=== PATIENT | male | born 1990 | race Caucasian/White ===

== ENCOUNTER 2018-09-03 13:42 | Emergency (ER) | payer SELFPAY ==
--- NOTE | 2018-09-03 13:46 | ED Physician Documentation ---
Sore Throat/Dental Pain - HISTORIAN Historian: patient - HPI Stated Complaint: dental pain Chief Complaint: Dental Pain Onset: days ago (5) Context: Other (dental extraction ) Worsened By: nothing Further Comments: yes (He states that he had a tooth pulled 5 days ago and he has been taking her vicodin regularly and ran out last night. He states his dentist told him to expect pain due to a difficult extraction. He has had no fever. He is able to eat and drink normally.) - ROS CONST: no problems - PAST HX Past History: none - SOCIAL HX Smoking History: non-smoker, other (Vape ) Alcohol Use: none Drug Use: none - FAMILY HX Family History: No - REVIEWED ASSESSMENTS Nursing Assessment Reviewed: Yes Vitals Reviewed: Yes Progress - Progress Progress: 1450: mom states he should not receive IM meds due to reactions to his muscle. He had already received the Toradol which mom states "I don't know why you would give him that he is in terrible pain and that wont help" She states he is in the room crying in pain and no one is helping DG 1455: pt mom and grandmother approach the desk stating he has been in the room for hours and he has had no one come in and eval or talk to him and his time with the provider was "only 2 seconds" which the provider did not explain anything and they would like to "go to a real hospital" Explained the rational for meds and waiting they state "can we have another provider who is not butt hurt over this" - we did ask if he wanted to wait or sign AMA form. He state he will not sign the form due to wanting the prescriptions for pain. Mom states "why cant we just have the prescription and go home". Explained the reason for waiting and he keeps saying "I have been here an hour and no one is helping me" DG 1502: he was back in room crying and thrashing around in bed stating he took a deep breath and had to cough now the pain is so bad in the tooth area he is feeling nauseated DG 1535: pain is improved to a 5/10 and he is able to open jaw wider. Appears food in socket. DG 1350: Pain improved although will be cleaning and packing. DG 1353: packed approx 1 in of iodafom packing in socket after rinsing out a large amount of food DG 1625: pain is a 2/10 and he states he feels so much better. He states he is sorry for all the things he said - again the process was explained and he and his mom stated they did understand they were scared because of the amount of pain he was in at the time. He has no nausea and feels like he wants to try to go home Dental Pain Physical Exam - EXAM General Appearance: no acute distress, alert, anxious Head/Neck: head nml inspection, other (healed area on back lower jaw from dental extraction. No drainge or redness. ) Mouth/Throat: lips nml, gums nml, pharynx nml Ear/Nose: nml inspection Respiratory: no resp. distress CVS: reg. rate & rhythm, heart sounds nml Abdomen: soft Extremities: non-tender Skin: warm/dry Neuro/Psych: none Discharge Clincal Impression: Pain, dental Referrals: Primary Doctor,No [Primary Care Provider] - 2 Days Comments: 1.Vicodin take 1 by mouth every 8 hours as needed for pain x 2 days. CALL YOUR DENTIST for dental packing 2. Amoxicillin 875 mg take 1 by mouth twice per day x 10 days 3. Warm salt water gargles 4. Warm tea bag at site for 10 min 5. Tylenol or Ibuprofen for more mild pain as directed for pain 6. Return to ER for any concerns Do not smoke Do not take in pop/soda always rinse your mouth after food Condition: Stable Disposition: 01 HOME, SELF-CARE Decision to Admit: NO Date of Decison to Admit: 09/03/18 Decision Time: 16:29
[2018-09-03] MEDS: KETOROLAC TROMETHAMINE 60 MG/2 ML VIAL IM ONE (14:30)
[2018-09-03] MEDS: ONDANSETRON HCL/PF 4 MG/ 2ML VIAL IVP ONE (15:14)
[2018-09-03] MEDS: 0.9 % SODIUM CHLORIDE 1,000 ML IV ONE (15:15)
[2018-09-03] MEDS: MORPHINE SULFATE 10 MG/ML VIAL IVP ONE (15:16)
[2018-09-03] MEDS ORDERED: MORPHINE SULFATE 10 MG/ML VIAL IVP ONE (15:28)
[2018-09-03 16:55] VITALS: BP 124/83
== END 2018-09-03 16:54 | disposition home or self-care (01) ==
LOC: ED 13:42
DX: K08.89 Other specified disorders of teeth and supporting structures (principal)
CPT/HCPCS: 96365; 96372; 96375; 99283; 99284; J1885; J2270; J2405; J7030; S1016